=== PATIENT | female | born 1980 | race Caucasian/White ===

== ENCOUNTER 2016-11-14 11:40 | Emergency (ER) | payer SELFPAY | END 2016-11-14 15:37 | disposition home or self-care (01) | LOC: ER 11:40 | DX: R13.10 Dysphagia, unspecified (principal); F17.200 Nicotine dependence, unspecified, uncomplicated; D64.9 Anemia, unspecified; Z88.8 Allergy status to other drugs, medicaments and biological substances | CPT/HCPCS: 99283 ==